=== PATIENT | male | born 1960 | race Caucasian/White ===

== ENCOUNTER 2017-01-05 02:05 | Inpatient (IN) | payer OTHER ==
[~2017-01-05] VITALS: Ht 175.3 cm; Wt 121.1 kg
[2017-01-05 04:01] LABS: BASOPHIL % 0.5 % (0-2); PLATELET COUNT 220 x10^3mcL (130-400); RED CELL DISTRIBUTION WIDTH 14.3 % (11.5-14.5)
[2017-01-05 04:10] LABS: CALCIUM 8.4 mg/dL (8.5-10.1); CARBON DIOXIDE 24.2 mmol/L (21-32); CHLORIDE SERUM 107 mmol/L (98-107); GFR1 > 60 mL/min; GLUCOSE SERUM 102 mg/dL (74-106); POTASSIUM SERUM 4.2 mmol/L (3.5-5.1); SODIUM SERUM 137 mmol/L (136-145)
[2017-01-05 04:25] LABS: ALKALINE PHOSPHATASE 118 U/L (46-116); ALT/SGPT 78 U/L (16-63); AST/SGOT 38 U/L (15-37); BILIRUBIN TOTAL 0.9 mg/dL (0.20-1.00); LIPASE 168 IU/L (73-393); TOTAL PROTEIN, SERUM 6.4 g/dL (6.4-8.2)
[2017-01-05 04:26] LABS: ALBUMIN 3.2 g/dL (3.4-5.0)
[2017-01-05 06:40] LABS: MAGNESIUM 2.3 mg/dL (1.8-2.4)
[2017-01-05] MEDS ORDERED: BAYER ASPIRIN R81 MG (06:40)
[2017-01-05] MEDS ORDERED: QVAR0.08 MG/Ac (06:41)
[2017-01-05] MEDS ORDERED: COZAAR100 MG (06:41)
[2017-01-05] MEDS ORDERED: METOPROLOL SUCC50 M2 (06:41)
[2017-01-05] MEDS ORDERED: VENTOLIN H0.09 MG/A1 (06:42)
[2017-01-05 06:50] LABS: FREE T4 0.98 ng/dL (0.76-1.46); FREE THYROXINE INDEX 2.6 ug/dL (1.4-4.5); T4(THYROXINE) 6.6 ug/dL (4.7-13.3)
[2017-01-05 07:31] LABS: T3 TOTAL 1.19 ng/mL
[2017-01-05 08:50] VITALS: BP 118/79
[2017-01-05 10:20] VITALS: BP 100/66
[2017-01-05 14:25] VITALS: BP 113/74
[2017-01-05 17:45] VITALS: BP 127/83
[2017-01-05 21:02] VITALS: BP 139/98
[2017-01-05 21:59] VITALS: BP 136/93
[2017-01-06] VITALS (9 sets, daily range): BP systolic 129–154; BP diastolic 84–108; Ht 175.3 cm; Wt 121.1 kg
[2017-01-06 07:04] LABS: BASOPHIL % 0.5 % (0-2); PLATELET COUNT 194 x10^3mcL (130-400); RED CELL DISTRIBUTION WIDTH 14.4 % (11.5-14.5)
[2017-01-06 07:06] LABS: CALCIUM 8.4 mg/dL (8.5-10.1); CARBON DIOXIDE 27.1 mmol/L (21-32); CHLORIDE SERUM 106 mmol/L (98-107); GFR1 > 60 mL/min; GLUCOSE SERUM 112 mg/dL (74-106); MAGNESIUM 2.3 mg/dL (1.8-2.4); PHOSPHOROUS 4.5 mg/dL (2.5-4.9); POTASSIUM SERUM 4.3 mmol/L (3.5-5.1); SODIUM SERUM 140 mmol/L (136-145)
[2017-01-06 10:45] LABS: AMPHETAMINE QUAL UR NONE DETECTED (NEG <=1000)
[2017-01-06 11:44] LABS: UA SPECIFIC GRAVITY >=1.030 (1.005-1.035); microscopic required? YES; urine erythrocyte NEGATIVE (NEGATIVE)
[2017-01-07 06:00] VITALS: BP 140/99
[2017-01-07 06:02] VITALS: BP 138/63
[2017-01-07 06:26] LABS: BASOPHIL % 0.3 % (0-2); PLATELET COUNT 198 x10^3mcL (130-400); RED CELL DISTRIBUTION WIDTH 14.2 % (11.5-14.5)
[2017-01-07 06:36] LABS: CALCIUM 8.5 mg/dL (8.5-10.1); CARBON DIOXIDE 28.5 mmol/L (21-32); CHLORIDE SERUM 106 mmol/L (98-107); GFR1 > 60 mL/min; GLUCOSE SERUM 99 mg/dL (74-106); SODIUM SERUM 141 mmol/L (136-145)
[2017-01-07 06:38] LABS: ALBUMIN 2.9 g/dL (3.4-5.0)
[2017-01-07] MEDS ORDERED: LIPI20 PO (06:53)
[2017-01-07] MEDS ORDERED: COR3 PO (06:54)
[2017-01-07] MEDS ORDERED: ALD25 PO (06:56)
[2017-01-07] MEDS ORDERED: PULMICORT0.5 MG/2 M IH (06:58)
[2017-01-07] MEDS ORDERED: LASIX20 MG PO (06:59)
[2017-01-07] MEDS ORDERED: ZES20 PO (07:12)
[2017-01-07 09:30] VITALS: BP 147/109
[2017-01-07 14:13] VITALS: BP 129/81
[2017-01-07 14:15] VITALS: BP 129/81
[2017-01-07] MEDS ORDERED: PULMICORT180 MCG/Ac INH (17:58)
[2017-01-07] MEDS ORDERED: NOVAPLUS V0.09 MG/Ac IH (17:58)
== END 2017-01-07 15:47 | disposition home or self-care (01) | DRG 286 ==
LOC: ED 02:05 → DU 05:06
PROVIDERS: Emergency Medicine; Internal Medicine Interventional Cardiology; ADMIT Family Medicine
PROC: B211YZZ Fluoroscopy of Multiple Coronary Arteries using Other Contrast (ICD-10-PCS; 2017-01-06)
PROC: 4A023N7 Measurement of Cardiac Sampling and Pressure, Left Heart, Percutaneous Approach (ICD-10-PCS; principal; 2017-01-06 13:30)
DX: I50.43 Acute on chronic combined systolic (congestive) and diastolic (congestive) heart failure (principal); J96.00 Acute respiratory failure, unspecified whether with hypoxia or hypercapnia; N17.0 Acute kidney failure with tubular necrosis; E44.0 Moderate protein-calorie malnutrition; I42.9 Cardiomyopathy, unspecified; D68.69 Other thrombophilia; M94.0 Chondrocostal junction syndrome [Tietze]; J45.909 Unspecified asthma, uncomplicated; R73.03 Prediabetes; G47.33 Obstructive sleep apnea (adult) (pediatric); E83.39 Other disorders of phosphorus metabolism; K76.0 Fatty (change of) liver, not elsewhere classified; E66.9 Obesity, unspecified; I34.0 Nonrheumatic mitral (valve) insufficiency; I37.1 Nonrheumatic pulmonary valve insufficiency; I36.1 Nonrheumatic tricuspid (valve) insufficiency; F10.10 Alcohol abuse, uncomplicated; Z79.82 Long term (current) use of aspirin; Z68.39 Body mass index [BMI] 39.0-39.9, adult
CPT/HCPCS: CLHCL; 82962; 83880; 84439; 90658; C1769; C1887; C1894; J1644; J1940; J2001; J2250; J3010; J3490; J7030; J7050; J7620; J7626; Q0092; Q9967

== ENCOUNTER 2019-07-30 03:34 | Emergency (ER) | payer OTHER ==
[~2019-07-30] VITALS: Ht 175.3 cm; Wt 129.8 kg
[~2019-07-30 03:34] MED LIST: ALD25 PO; BAYER ASPIRIN R81 MG; COR3 PO; COZAAR100 MG; LASIX20 MG PO; LIPI20 PO; METOPROLOL SUCC50 M2; NOVAPLUS V0.09 MG/Ac IH; PULMICORT0.5 MG/2 M IH; PULMICORT180 MCG/Ac INH; QVAR0.08 MG/Ac; VENTOLIN H0.09 MG/A1; ZES20 PO
[2019-07-30 03:43] VITALS: Ht 175.3 cm; Wt 129.8 kg
[2019-07-30 05:38] VITALS: BP 110/48
== END 2019-07-30 05:38 | disposition home or self-care (01) ==
LOC: ED 03:34
DX: K64.8 Other hemorrhoids (principal); I25.10 Atherosclerotic heart disease of native coronary artery without angina pectoris; I10 Essential (primary) hypertension; J45.909 Unspecified asthma, uncomplicated
CPT/HCPCS: J1885